=== PATIENT | female | born 1950 | race Caucasian/White ===

== ENCOUNTER 2018-07-23 06:18 | Inpatient (IN) ==
[2018-07-23] MEDS ORDERED: Albuterol 2.5 MG/3 ML NEBULIZER IH ONE (06:37)
[2018-07-23] MEDS ORDERED: Ringers Solution, Lactated 1,000 ML IVC SCH ×2 (06:45→10:40)
[2018-07-23] MEDS ORDERED: Lidocaine -MPF 1% 5 ML AMPUL ONE (06:46)
[2018-07-23] MEDS ORDERED: Bupivacaine/Clonidine Syringe 1 EACH SYRINGE ONE (06:47)
[2018-07-23] MEDS ORDERED: ROPIVACAINE HCL/PF 0.5% 30 ML VIAL ONE (06:47)
--- NOTE | 2018-07-23 06:50 | History & Physical Report ---
Date of Encounter: 07/23/18 Time of Encounter: 06:50 24 Hour HP Update - Instructions Instructions: If the History and Physical is less than 30 days old and was completed prior to A.M. admission and or procedure and has NOT been updated on calendar day of procedure please complete this update prior to performing procedure. - Update Patient reports changes in Medical Condition: No Changes in examination, assessment, or condition: No Changes in Medication: No Preop tests/diagnostics Reviewed: Yes Surgery Remains Indicated: Yes Consent for Planned Operative Procedure(s) Verified: Yes - Pre-Operative Checklist Preoperative Checklist Indicated: No Prophylactic Antibiotic Ordered: Yes Is VTE Prophylaxis Indicated?: Yes
[2018-07-23] MEDS ORDERED: *HR* Morphine Sulfate/PF 10 MG/10 ML AMPUL ONE (07:00)
--- NOTE | 2018-07-23 07:03 | Anesthesia Evaluation PreOp ---
Date of Encounter: 07/23/18 Time of Encounter: 07:00 - Past History Planned Operation: Kasi TKR Cardiac History: HTN, Hyperlipidemia Pulmonary History: Smoker, COPD VICE PRESIDENT OF OPERATIONS History: Other (chronic low back pain, bulging lumbar disc) Other Medical History: Renal (CKD III), GERD Anesthesia History: No Prior Anesthetic Complications, Past Anesthesia (lumbar fusion) Alcohol Use: none Medications and Allergies Lidocaine Patch [Lidoderm 5% patch] 1 each TP DAILY PRN #7 adh..patch 02/26/18 [Rx] predniSONE [PredniSONE] 20 mg PO BID #10 tablet 02/26/18 [Rx] Allergy/AdvReac Type Severity Reaction Status Date / Time No Known Allergies Allergy Verified 02/26/18 18:31 - Meds/Allergy Pre-op Review Medications Reviewed: Yes Allergies Reviewed: Yes Beta Blockers on Current Med List: No Anesthesia Results - Labs Laboratory Tests 02/28/18 06/27/18 06/27/18 16:32 13:43 13:43 WBC 7.6 Hgb 16.6 H Hct 51.9 H Plt Count 311 PT 10.8 INR 1.0 APTT 34.6 Sodium Potassium Chloride Carbon Dioxide BUN Creatinine Glucose 116 H 06/27/18 13:43 WBC Hgb Hct Plt Count PT INR APTT Sodium 139 Potassium 3.9 Chloride 104 Carbon Dioxide 30 H BUN 17 Creatinine 1.00 Glucose - Imaging EKG: report reviewed (SINUS RHYTHM POSSIBLE LEFT ATRIAL ENLARGEMENT Electronically Signed On 06-30-2018 13:22:19 EDT by Felix Griffiths) Anesthesia Exam O2 Sat Height 1.65 m Height 1.65 m Weight 60.328 kg Weight 60.328 kg O2 Sat by Pulse Oximetry 95 Vital Signs Temp Pulse Resp BP Pulse Ox 98.1 F 86 18 143/78 95 07/23/18 06:40 07/23/18 06:40 07/23/18 06:40 07/23/18 06:40 07/23/18 06:40 Weight: 60kg NPO (# of Hours): >8 - HEENT Pupil (Motor): Pupils equal, EOMI Mallampati: III Teeth: Poor dentition Oral Opening: Greater than 3 - VICE PRESIDENT OF OPERATIONS LOC: Oriented VICE PRESIDENT OF OPERATIONS Motor: Normal RUE, Normal LUE, Normal RLE, Normal LLE, Normal Face VICE PRESIDENT OF OPERATIONS Sensory: Normal: RUE, LUE, RLE, LLE, Face - Cardiac Rhythm: Regular - Pulmonary Breath Sounds: bilateral Clear Respiratory Effort: Symmetrical Anesthesia Assess/Plan ASA Score: 3 Level of consciousness: Cooperative Anesthetic Plan: General, Regional Nerve Block (kasi adductor and i pack) Regional Nerve Block Plan: Adductor canal (kasi), IPACK (kasi) Reason for No Neuroaxial/Regional Block: Other (spinal not performed because pt had a lumbar fusion/instrumentation and has a chronic bulging disc and low black pain) Monitoring Plan: Standard Monitors Recovery Plan: PACU
[2018-07-23] MEDS ORDERED: Lidocaine -MPF 2% 2 ML VIAL ONE (07:13)
[2018-07-23] MEDS ORDERED: *HR* FentaNYL (PF) 100 MCG/2 ML VIAL ONE ×2 (07:13→08:54)
[2018-07-23] MEDS ORDERED: Lidocaine -MPF 4% 5 ML AMPUL ONE (07:13)
[2018-07-23] MEDS ORDERED: *HR* Succinylcholine 200 MG/10 ML VIAL IVP ONE (07:13)
[2018-07-23] MEDS ORDERED: Ondansetron 4 MG/2 ML VIAL ONE (07:13)
[2018-07-23] MEDS ORDERED: *HR* Propofol 200 MG/20 ML VIAL IVP ONE (07:13)
[2018-07-23] MEDS ORDERED: *HR* Midazolam HCl 2 MG/2 ML VIAL ONE (07:13)
[2018-07-23] MEDS ORDERED: Dexamethasone 4 MG/ML VIAL ONE (07:13)
[2018-07-23] MEDS ORDERED: Propofol 500 MG/50 ML INFUS..BTL ONE (07:16)
[2018-07-23] MEDS ORDERED: Acetaminophen IV 1,000 MG/100 ML INFUS..BTL ONE (07:18)
[2018-07-23] MEDS ORDERED: Pregabalin 50 MG CAPSULE ONE (07:18)
[2018-07-23] MEDS ORDERED: Ethanol\\Acetic Acid\\Na Ace\\Ben 1,000 ML IRRIG.SOLN IR ONE ×2 (07:37)
[2018-07-23] MEDS ORDERED: *HR* Phenylephrine 10 MG/ML VIAL ONE (08:00)
[2018-07-23] MEDS ORDERED: Tranexamic Acid 1,000 MG/10 ML VIAL ONE ×2 (08:05→08:07)
[2018-07-23] MEDS ORDERED: *HR* Promethazine 25 MG/ML VIAL IVP PRN (08:38)
[2018-07-23] MEDS ORDERED: *HR* OxyCODONE/APAP 5/325 TABLET PO PRN (08:38)
[2018-07-23] MEDS ORDERED: *HR* Labetalol 20 MG/4 ML SYRINGE IVP PRN (08:38)
--- NOTE | 2018-07-23 08:38 | Anesthesia Procedures ---
Addendum entered and electronically signed by Tania Conklin CRNA 07/23/18 11:05: Original Note: Date of Encounter: 07/23/18 Time of Encounter: 07:30 Procedures: Anesthesia - Nerve Block Procedure Date: 07/23/18 Time: 07:30 Allergies/Adv Reactions: NKDA Pre-op Diagnosis: BILATERAL KNEE ARTHRTIS Surgical Procedure: BILATERAL TKA Checklist: Correct Patient Identifier, Correct procedure, History checked Blood Thinner: No Monitor Applied: EKG, BP, Pulse Oximetry Supplemental Oxygen via Nasal Cannula (L/min): 2 Sedation: Versed (mg): 2 Sedation: Fentanyl (mcg): 100 Indication: Post Op Analgesia Pre-op Neuro Deficits: No Block Type: Other (ADDUCTOR BILATERAL + IPACK BILATERAL ) Catheter placed: No Sterile Technique: Yes Ultrasound used: Yes Anatomy identified: Yes Visual spread of Local: Yes Neuro Stimulation: No Blood on Needle Aspiration: No Smooth Injection of Local: Yes Pain with Injection of Local: No Prep: Chlorhexadine Needle: 22 x 50 mm Stimuplex Local: 0.25% Bupivicaine w/Clonidine 20 mcg/cc, Ropivacaine (0.25% WITH 8MG DECADRON ) Volume (cc): 60 Number of Attempts: 1 Complications: None/effective block Vitals: Vital Signs - Last 8 Hours Temp Pulse Resp BP Pulse Ox 07/23/18 07:45 90 16 126/73 98 07/23/18 07:30 86 14 121/64 91 07/23/18 06:40 98.1 F 86 18 143/78 95 Intake and Output 07/22/18 07/23/18 07/23/18 23:59 07:59 15:59 Intake Total 250 / 250 Balance 250 / 250 Intake: IV Fluids 250 / 250 Vancocin 1,000 MG In 0.9 % 250 / 250 Sodium Chloride 250 ML @ 167 mls/hr IVPB ONCE ONE Rx#: [id number] Other: Weight 60.328 kg Patient Weight 07/23/18 23:59 Weight 60.328 kg Comments: SRNA PERFORMED BLOCKS
--- NOTE | 2018-07-23 09:15 | Orthopedic Operative Note ---
Date of procedure: 07/23/18 Pre-op diagnosis: Bilateral knee arthritis Post-op diagnosis: same Procedure: Procedure: Bilateral robotic-assisted Total knee replacement Estimated blood loss: 400 cc Hardware: Metal and polyethylene replacement. Altagracia Femur: 3 Tibia: 3 TS insert:11 left, 9 right Patella: 36 Exam Under anesthesia: Right knee 3 degree flexion contracture 3 degree varus left knee 0 degree flexion-extension 3 degree varus as calculated by the robot full flexion and no instability Procedural Notes: Grade 4 arthritic changes all 3 compartments both knees Operative procedure: The patient was brought to the operating room and placed on the operating room table. After general anesthesia was administered the operative knee was examined. Findings were noted in the exam under anesthesia. Next will be dictation for both knees any differences will be highlighted. Left knee was operated on first followed by the right knee. Both operative extremity was prepped and draped in sterile surgical fashion. The patient received IV antibiotics prior to skin incision. A standard midline incision was made centered over the patella. The incision was made through the skin and subcutaneous tissue. A medial parapatellar tendon approach was performed. Care was taken to preserve tissue along the medial aspect of the patella. And to protect the patella tendon. The deep MCL was released off the medial tibia. The infra patella fat pad was excised. The patella was everted and cut was made at the level of the insertion of the quadriceps and patella tendon. The patella was sized the guide was seated and the lug holes are drilled. Knee was brought into flexion. Patient noted to have grade 4 arthritic changes all 3 compartments in both knees. Steinmann pins were placed in the tibia and the femur for the tibial and femoral arrays respectively. Checkpoints were also placed in the tibia and the femur for calculation purposes. The knee including the femur and the tibial registered. Osteophytes, ACL and PCL were excised at this point. Extension and flexion were assessed with a valgus stress components were adjusted on the computer to balance the knee. Femoral cuts were made first with robotic assistance, these included the anteri or cut posterior cuts chamfer cuts. Tibial cut was then performed with robotic assistance as well. Bone fragments were removed, as well as the medial and lateral meniscus. The size 3 femoral guide was seated box cut was made lug holes are drilled. The size 3 tibial tray was seated and prepared with the fin cutter. Trial reduction with the 11 on the left 9 on the right TS Cher revealed extens ion of 0 degree and 1 degree varus for both knees full flexion. No varus valgus instability. Trial reduction revealed excellent patella tracking. All trial components were removed all bony surfaces were irrigated. The Tibia was seated followed by the femur, The selected Cher size left 11, right 9 was seated and secured patella. Patient had similar findings for motion and stability. The knee was closed by the PA. The knee was then irrigated out with 2 L of pulse irrigation. The extensor mechanism was closed with #2 FiberWire suture and #2 PDS suture. The subcutaneous tissue was then irrigated and closed deep with #1 PDS suture superficially with 0 PDS suture and skin was closed with zip tie The patient was then placed in a sterile dressing and a postoperative brace extubated and transferred to recovery room in stable condition. Anesthesia: GETA Surgeon: Anup Sanchez Was there an assistant dean of students present: Yes Virtualization Engineer: Maame Kovacs Estimated blood loss (cc): 400 Condition: stable Disposition: PACU
[2018-07-23] MEDS: *HR* HYDROmorphone (PF) 1 MG/ML SYRINGE IVP PRN ×2 (10:06→10:11)
[2018-07-23] MEDS ORDERED: Ondansetron 4 MG/2 ML VIAL IVP PRN (10:40)
[2018-07-23] MEDS ORDERED: Temazepam 15 MG CAPSULE PO PRN (10:40)
[2018-07-23] MEDS ORDERED: MOM Conc 10 ML UD.LIQ PO PRN (10:40)
[2018-07-23] MEDS ORDERED: Naloxone 0.4 MG/ML INJ IVP PRN (10:40)
[2018-07-23] MEDS ORDERED: Sennosides 8.6 MG TABLET PO PRN (10:40)
[2018-07-23] MEDS ORDERED: Melatonin 3 MG TABLET PO PRN (10:40)
--- NOTE | 2018-07-23 10:42 | Anesthesia Evaluation Post Op ---
Date of Encounter: 07/23/18 Time of Encounter: 10:41 - Vital Signs Vital Signs: Vital Signs/O2 Sat, Most Current Temp Pulse Resp BP Pulse Ox 98.5 F 81 13 119/68 94 07/23/18 10:26 07/23/18 10:26 07/23/18 10:26 07/23/18 10:26 07/23/18 10:26 - Lungs Lungs: Clear Ascult./Percussion - Airway Airway: Non-obstructed - Cardiovascular Regular Rate - Mental Status Mental Status: Alert & Oriented, Answers Appropriately - Pain Pain Scale: 5 Pain Scale used: Numeric (1 - 10) - Nausea Vomiting Nausea Vomiting: Not Present - Hydration Hydration: Ice chips - Discharge PostOp Status: Transfer Patient to floor
[2018-07-23] MEDS: *HR* OxyCODONE Immed Rel 5 MG TABLET PO PRN ×2 (11:08→21:24)
[2018-07-23] MEDS: Umeclidinium Brm/Vilanterol Tr [Anoro Ellipta 62.5-2 IH SCH (11:16)
--- NOTE | 2018-07-23 11:33 | Discharge Summary ---
Addendum entered and electronically signed by SIRENA Hirsch 07/29/18 16:40: Patient discharged home with scripts for walker, toilet seat rise, shower chair, and handicap placard as well. Encouraged to continue stool softener while taking opioid based pain medication and Simethicone if gas is causing her discomfort. Patient educated on warning signs regarding severe constipation. Verbalized understanding and agreement. Addendum entered and electronically signed by SIRENA Hirsch 07/29/18 16:33: POD# 6 status post Bilateral robotic-assisted Total knee replacement performed 07/23/[address] Sanchez for Bilateral knee arthritis. Patient seen at bedside with daughter present. She states she is much improved and her daughter agrees. Patient would like to transition home with home health given her marked improvement in self-care rather than ECF rehab. This is appropriate from surgical team perspective. Her hospital stay was complicated by hypoxia as noted below. Resolved on discharge. Patient reclining in bed in no acute distress alert and oriented x 3. Incision clean, dry, intact. Dressings clean, dry intact. Moderate effusion noted to left knee. No calf tenderness, erythema, or warmth noted on examination. B/L Ankle/foot ROM intact. Neurovascularly intact B/l LE. Labwork and medications reviewed. Pain control: Adequate Participating in PT. All questions and concerns addressed. Educated on use of incentive spirometer, ambulation, and hydration. Patient educated on post-operative restrictions and care. Addressed: see above. D/C plan: Home with home health today. Patient being discharged with pain medication and Aspirin for DVT prophylaxis. Keep outpatient follow up as scheduled. Addendum entered and electronically signed by Anup Sanchez MD 07/28/18 07:28: Plan for discharge today Addendum entered and electronically signed by SIRENA Pratt 07/25/18 12:53: Discharge held today secondary to hypoxia - 86% on RA. Plan to ween patient off O2 and push IS and D/C in AM once O2 is > 94% on RA or the need for supplemental O2 will be discussed for home use. Original Note: Orders not resulted at time of discharge: Pending orders 07/23/18 00:01 XR knee BI 1-2V [XR] Routine 07/23/18 07:24 US anesthesia pain block [US] Stat 07/24/18 04:00 Basic Metabolic Panel AM 0400 Hemoglobin and Hematocrit [HEME] AM 0400 07/25/18 04:00 Basic Metabolic Panel AM 0400 Hemoglobin and Hematocrit [HEME] AM 0400 Date of Encounter: 07/25/18 Time of Encounter: 11:09 - Discharge Diagnosis (1) Arthritis of knee Priority: Primary Status: Acute (2) Status post total bilateral knee replacement Priority: Primary Status: Acute (3) CKD (chronic kidney disease) stage 2, GFR 60-89 ml/min Priority: Secondary Status: Chronic (4) COPD (chronic obstructive pulmonary disease) Priority: Secondary Status: Chronic Qualifiers: COPD type: unspecified COPD Qualified Code(s): J44.9 - Chronic obstructive pulmonary disease, unspecified (5) HTN (hypertension) Priority: Secondary Status: Chronic Qualifiers: Hypertension type: essential hypertension Qualified Code(s): I10 - Essential (primary) hypertension - Hospital Course Hospital course: Ms. Spence is a 68 year old female - POD#2 - Bilateral TKR. Patient had uneventful postoperative course. Stable for discharge. Patient seen at bedside, without complaints. A&O x 3 Afebrile, vital signs stable. Vital Signs Temp Pulse Resp BP Pulse Ox 07/25/18 11:01 97.7 F 95 20 112/70 86 07/25/18 09:00 96 07/25/18 06:40 98.3 F 95 14 126/71 96 07/24/18 23:22 98.3 F 93 17 114/70 92 07/24/18 19:04 98.2 F 96 16 112/68 93 07/24/18 15:23 98.4 F 92 15 152/77 92 Intake and Output 07/24/18 07/25/18 07/25/18 23:59 07:59 15:59 Output Total 200 / 200 Balance -200 / -200 Output: Urine 200 / 200 Other: # Voids 1 1 Weight 60.32 kg 61.35 kg Patient Weight 07/25/18 23:59 Weight 61.35 kg Labs reviewed. H/H - stable, asymptomatic Short CBC 07/25/18 Range/Units 05:59 Hgb 11.8 (11.5-15.4) g/dL Hct 36.5 (35.3-44.9) % BMP 07/25/18 Range/Units 05:59 Sodium 137 (136-145) mEq/L Potassium 4.2 (3.5-5.1) mEq/L Chloride 102 (98-107) mEq/L Carbon Dioxide 29 (23-29) mEq/L BUN 18 (8-23) mg/dL Creatinine 0.83 (0.60-1.20) mg/dL Glucose 122 H (70-105) mg/dL Calcium 8.7 (8.6-10.3) mg/dL Pain control: adequate 07/24 - added Lidoderm and flexeril 5mg BID Participating in PT. All questions and concerns addressed. Educated on use of incentive spirometer. Encouraged ambulation and proper hydration. Patient educated on post-operative restrictions and post-operative care. Assessment and plan: Continue with postoperative care Discharge plan: Home with HH, discharge today - Time Spent with Patient Total time spent providing and/or coordinating discharge services: - Discharge Medications Prescriptions: OxyCODONE Immed Rel [Roxicodone 5 MG] 5 mg PO Q6HR PRN 7 Days #28 tablet PRN Reason: Severe Pain Aspirin Enteric Coated [Aspirin EC] 325 mg PO BID #20 tablet. Cyclobenzaprine [Flexeril] 5 mg PO BID PRN 10 Days #20 tablet PRN Reason: Breakthrough Pain Home Medications: Amlodipine Besylate 5 mg PO HS 07/23/18 [History] Aspirin Enteric Coated [Aspirin EC] 325 mg PO BID #20 tablet. 07/23/18 [Rx] Ca/D3/Mag#11/Zinc/Restaurant Worker/Andrade/Bor [Caltrate 600+D Plus Tablet] 1 tab PO DAILY 07/23/18 [History] Cholecalciferol (D-3) [Vitamin D] 5,000 unit PO HS 07/23/18 [History] Duloxetine HCl [Cymbalta] 60 mg PO HS 07/23/18 [History] Esomeprazole Magnesium [Nexium 24Hr] 20 mg PO DAILY 07/23/18 [History] Gabapentin [Neurontin] 300 mg PO HS 07/23/18 [History] Melatonin [Melatin] 3 mg PO HS PRN 07/23/18 [History] OxyCODONE Immed Rel [Roxicodone 5 MG] 5 mg PO Q6HR PRN 7 Days #28 tablet 07/23/18 [Rx] Rosuvastatin Calcium 5 mg PO HS 07/23/18 [History] Umeclidinium Brm/Vilanterol Tr [Anoro Ellipta 62.5-25 Mcg INH] 1 puff IH DAILY 07/23/18 [History] Cyclobenzaprine [Flexeril] 5 mg PO BID PRN 10 Days #20 tablet 07/25/18 [Rx] Allergies/Adverse Reactions: Allergy/AdvReac Type Severity Reaction Status Date / Time pravastatin AdvReac Muscle Pain Verified 07/23/18 11:06 Date of admission: 07/23 Primary care physician: Jt Ruiz MD Consults: 07/23/18 10:40 Consult to Occupational Therapy [CONS] Routine Comment: Evaluate, develop and implement POC Reason for Consult: post knee surgery Does patient have active BEDREST order?: No Is patient medically & hemodynamically stable?: Yes Consult to Orthopedic Navigator [CONS] [CONS] Routine Consult to Physical Therapy [CONS] Routine Comment: Evaluate, develop and impliment POC Reason for Consult: post knee surgery Does patient have active BEDREST order?: No Is patient medically & hemodynamically stable?: Yes Consult to Conditioner Tumbler [CONS] Routine Reason for SW Consult: post op joint replacement RT Post Op Consult [CONS] Routine Anticipated date of discharge: 07/25/18 - Patient Status Disposition: Home Health Service Condition: Good Functional capacity at discharge: uses cane/walker Overall status at discharge: patient is progressing back to baseline - Discharge Instructions Follow Up With: Jt Ruiz MD [Primary Care Provider] -
[2018-07-23] MEDS: *HR* OxyCODONE/APAP 5/325 TABLET PO PRN (17:14)
[2018-07-23] MEDS: amLODIPine 5 MG TABLET PO SCH (21:24)
[2018-07-23] MEDS: Gabapentin 300 MG CAPSULE PO SCH (21:24)
[2018-07-23] MEDS: Cholecalciferol (D-3) 1,000 UNIT TABLET PO SCH (21:24)
[2018-07-24] MEDS: *HR* OxyCODONE/APAP 5/325 TABLET PO PRN ×2 (00:16→04:50)
[2018-07-24] MEDS: *HR* OxyCODONE Immed Rel 5 MG TABLET PO PRN ×4 (01:32→19:57)
[2018-07-24] MEDS: *HR* Enoxaparin 30 MG/0.3 ML SYRINGE SQ SCH ×2 (04:50→16:43)
[2018-07-24 05:13] LABS: Hematocrit 38.7 % (35.3-44.9); Hemoglobin 12.7 g/dL (11.5-15.4)
[2018-07-24 05:31] LABS: BUN/Creatinine Ratio 21 (6-26); Blood Urea Nitrogen 20 mg/dL (8-23); Calcium 8.7 mg/dL (8.6-10.3); Carbon Dioxide 26 mEq/L (23-29); Chloride 103 mEq/L (98-107); Glucose 136 mg/dL (70-105); Osmolality,Calculated 291 (280-300); Potassium 4.2 mEq/L (3.5-5.1); Sodium 138 mEq/L (136-145); eGFR For Non-African Americans 58 (> 60)
[2018-07-24] MEDS: traMADol 50 MG TABLET PO PRN ×2 (07:47→16:43)
--- NOTE | 2018-07-24 07:53 | Orthopedics Progress Note ---
Date of Encounter: 07/24/18 Time of Encounter: 07:53 Subjective Interval history: Patient was seen this morning doing well without complaints. Afebrile vital signs stable. Operative extremity: Neurovascularly intact Dressing clean dry and intact Calves nontender Assessment and plan: Continue with postoperative care Hematocrit 38 Objective Vital signs: Vital Signs Temp Pulse Resp BP Pulse Ox 07/24/18 06:41 148/79 07/24/18 06:35 98.1 F 83 16 148/79 96 07/24/18 04:34 98.3 F 77 16 128/82 95 07/23/18 22:57 97.9 F 81 17 132/80 96 07/23/18 18:49 97.8 F 78 16 133/81 95 07/23/18 16:57 97.5 F L 88 14 126/79 97 07/23/18 16:02 97.3 F L 75 12 132/74 96 07/23/18 13:52 97.5 F L 88 14 96/62 92 07/23/18 12:49 97.6 F 78 16 110/62 95 07/23/18 11:45 97.5 F L 87 16 126/59 93 07/23/18 11:14 97.9 F 82 16 126/73 93 07/23/18 10:43 97.5 F L 83 16 121/73 93 07/23/18 10:26 98.5 F 81 13 119/68 94 07/23/18 10:16 98.5 F 80 14 112/67 94 07/23/18 10:06 82 13 110/65 95 07/23/18 09:56 75 16 130/73 97 07/23/18 09:46 99.4 F 73 15 114/71 100 Intake and Output 07/23/18 07/23/18 07/24/18 15:59 23:59 07:59 Intake Total 250 / 250 460 / 460 250 / 250 Output Total 400 / 400 120 / 120 Balance -150 / -150 340 / 340 250 / 250 Intake: IV Fluids 250 / 250 100 / 100 Vancocin 1,000 MG In 0.9 % 250 / 250 Sodium Chloride 250 ML @ 167 mls/hr IVPB ONCE ONE Rx#: [id number] Ancef 2,000 MG In 0.9 % Sodium 100 / 100 Chloride 100 ML @ 200 mls/hr IVPB Q8HR WADE Rx#:[id number] Oral 360 / 360 250 / 250 Output: Urine 120 / 120 Estimated Blood Loss 400 / 400 Other: Percent of Meal Consumed 90% # Voids 1 1 Weight 60.33 kg Patient Weight 07/24/18 23:59 Weight 60.33 kg - Labs CBC & BMP: 07/24/18 04:54 07/24/18 04:54 Labs: Abnormal lab results Est GFR (Non-Af Amer) 58 (> 60) L 07/24/18 04:54 Glucose 136 mg/dL (70-105) H 07/24/18 04:54 Consult Discharge Plan - Plan Referrals: Jt Ruiz MD [Primary Care Provider] - Prescriptions: Aspirin Enteric Coated [Aspirin EC] 325 mg PO BID #20 tablet. OxyCODONPeterson Immed Rel [Roxicodone 5 MG] 5 mg PO Q6HR PRN 7 Days #28 tablet PRN Reason: Severe Pain
[2018-07-24] MEDS: Umeclidinium Brm/Vilanterol Tr [Anoro Ellipta 62.5-2 IH SCH (11:01)
--- NOTE | 2018-07-24 11:44 | Physician Discharge Referral ---
<Maame Kovacs Yany - Last Filed: 07/24/18 11:42> Home Health/Hosp Referral Info Transfer to: Home Health Provider in Charge Post Discharge: PCP - Diagnosis (1) Status post total bilateral knee replacement Priority: Primary Status: Acute (2) Arthritis of knee Priority: Primary Status: Acute (3) HTN (hypertension) Priority: Secondary Status: Chronic (4) COPD (chronic obstructive pulmonary disease) Priority: Secondary Status: Chronic (5) CKD (chronic kidney disease) stage 2, GFR 60-89 ml/min Priority: Secondary Status: Chronic - Respiratory Orders None Smoking Cessation: Smoking cessation has been advised. For more information, call the [place] Tobacco Quit Line at 5-827-VHSO-NOW. - Diet/Nutrition Diet/Nutrition Orders: Regular - Activity Activity Orders: Up ad lobito, Ambulate, Walker - Services Needed Following services are medically necessary services: Nursing, Home Health Aide, Physical Therapy, Occupational Therapy Home Care Orders: Opsite dressing, leave intact until first post-operative visit. If dressing becomes >50% saturated, contact office, remove dressing and place appropriate dressing in its place. Do not allow for dressing to get wet. Zipline in place, plan to remove at post-operative day #14-16. Total Joint Precautions x 6 weeks Apply cold therapy wrap 3-6x/day for 20 minutes at a time. Encourage ambulation throughout the day Use Incentive spirometer 10x/hour. Elevate affected extremity above heart as tolerated. Brace: Wear knee immobilizer at night until first post-operative appt. - Transfer Medications Prescriptions: OxyCODONE Immed Rel [Roxicodone 5 MG] 5 mg PO Q6HR PRN 7 Days #28 tablet PRN Reason: Severe Pain Aspirin Enteric Coated [Aspirin EC] 325 mg PO BID #20 tablet. Home Medications: Amlodipine Besylate 5 mg PO HS 07/23/18 [History] Aspirin Enteric Coated [Aspirin EC] 325 mg PO BID #20 tablet. 07/23/18 [Rx] Ca/D3/Mag#11/Zinc/Costume Specialist/Andrade/Bor [Caltrate 600+D Plus Tablet] 1 tab PO DAILY 07/23/18 [History] Cholecalciferol (D-3) [Vitamin D] 5,000 unit PO HS 07/23/18 [History] Duloxetine HCl [Cymbalta] 60 mg PO HS 07/23/18 [History] Esomeprazole Magnesium [Nexium 24Hr] 20 mg PO DAILY 07/23/18 [History] Gabapentin [Neurontin] 300 mg PO HS 07/23/18 [History] Melatonin [Melatin] 3 mg PO HS PRN 07/23/18 [History] OxyCODONE Immed Rel [Roxicodone 5 MG] 5 mg PO Q6HR PRN 7 Days #28 tablet 07/23/18 [Rx] Rosuvastatin Calcium 5 mg PO HS 07/23/18 [History] Umeclidinium Brm/Vilanterol Tr [Anoro Ellipta 62.5-25 Mcg INH] 1 puff IH DAILY 07/23/18 [History] Allergies/Adverse Reactions: Allergy/AdvReac Type Severity Reaction Status Date / Time pravastatin AdvReac Muscle Pain Verified 07/23/18 11:06 Certification: Further, I certify that my clinical findings support that this patient is homebound (i.e. absences from home require considerable and taxing effort and are for medical reasons or druze services or infrequently or short duration when for other reasons) because: Homebound Reason: Absences from home are contraindicated except to recieve medical care, Post-surgery restriction and or conditions limit ability to leave home Attestation: My signature below is to certify that this patient is under my care and that I, or nurse practitioner, or a physician's special education assistant working with me, has a [id number] encounter with this patient. <Anup Sanchez - Last Filed: 07/25/18 06:48> - Respiratory Orders Smoking Cessation: Smoking cessation has been advised. For more information, call the [place] Tobacco Quit Line at 5-616-OZQG-NOW. Certification: Further, I certify that my clinical findings support that this patient is homebound (i.e. absences from home require considerable and taxing effort and are for medical reasons or druze services or infrequently or short duration when for other reasons) because: Attestation: My signature below is to certify that this patient is under my care and that I, or nurse practitioner, or a physician's special education assistant working with me, has a [id number] encounter with this patient.
--- NOTE | 2018-07-24 12:00 | Event Note ---
Date of Encounter: 07/24/18 Time of Encounter: 11:59 PCR - POD#1 0- Bilateral TKR. Patient seen at bedside, without complaints. A&O x 3 Afebrile, vital signs stable. Labs reviewed. H/H - stable, asymptomatic Pain control: adequate 07/24 - added Lidoderm and flexeril 5mg BID Participating in PT. All questions and concerns addressed. Educated on use of incentive spirometer. Encouraged ambulation and proper hydration. Patient educated on post-operative restrictions and post-operative care. Assessment and plan: Continue with postoperative care Discharge plan: Home with , discharge Vital Signs Temp Pulse Resp BP Pulse Ox 07/24/18 09:58 98.3 F 87 16 144/83 96 07/24/18 06:41 148/79 07/24/18 06:35 98.1 F 83 16 148/79 96 07/24/18 04:34 98.3 F 77 16 128/82 95 07/23/18 22:57 97.9 F 81 17 132/80 96 07/23/18 18:49 97.8 F 78 16 133/81 95 07/23/18 16:57 97.5 F L 88 14 126/79 97 07/23/18 16:02 97.3 F L 75 12 132/74 96 07/23/18 13:52 97.5 F L 88 14 96/62 92 07/23/18 12:49 97.6 F 78 16 110/62 95 Intake and Output 07/23/18 07/24/18 07/24/18 23:59 07:59 15:59 Intake Total 460 / 460 250 / 250 Output Total 120 / 120 Balance 340 / 340 250 / 250 Intake: IV Fluids 100 / 100 Ancef 2,000 MG In 0.9 % Sodium 100 / 100 Chloride 100 ML @ 200 mls/hr IVPB Q8HR [facility] Rx#:[id number] Oral 360 / 360 250 / 250 Output: Urine 120 / 120 Other: Percent of Meal Consumed 90% # Voids 1 1 Weight 60.33 kg Patient Weight 07/24/18 23:59 Weight 60.33 kg Short CBC 07/24/18 Range/Units 04:54 Hgb 12.7 (11.5-15.4) g/dL Hct 38.7 (35.3-44.9) % BMP 07/24/18 Range/Units 04:54 Sodium 138 (136-145) mEq/L Potassium 4.2 (3.5-5.1) mEq/L Chloride 103 (98-107) mEq/L Carbon Dioxide 26 (23-29) mEq/L BUN 20 (8-23) mg/dL Creatinine 0.96 (0.60-1.20) mg/dL Glucose 136 H (70-105) mg/dL Calcium 8.7 (8.6-10.3) mg/dL
[2018-07-24] MEDS: Gabapentin 300 MG CAPSULE PO SCH (21:34)
[2018-07-24] MEDS: amLODIPine 5 MG TABLET PO SCH (21:35)
[2018-07-24] MEDS: Cholecalciferol (D-3) 1,000 UNIT TABLET PO SCH (21:35)
[2018-07-25] MEDS: *HR* OxyCODONE Immed Rel 5 MG TABLET PO PRN ×3 (00:57→17:58)
[2018-07-25] MEDS: *HR* Enoxaparin 30 MG/0.3 ML SYRINGE SQ SCH ×2 (05:28→17:46)
[2018-07-25 06:18] LABS: Hematocrit 36.5 % (35.3-44.9); Hemoglobin 11.8 g/dL (11.5-15.4)
[2018-07-25 06:44] LABS: BUN/Creatinine Ratio 22 (6-26); Blood Urea Nitrogen 18 mg/dL (8-23); Calcium 8.7 mg/dL (8.6-10.3); Carbon Dioxide 29 mEq/L (23-29); Chloride 102 mEq/L (98-107); Glucose 122 mg/dL (70-105); Osmolality,Calculated 287 (280-300); Potassium 4.2 mEq/L (3.5-5.1); Sodium 137 mEq/L (136-145); eGFR For Non-African Americans > 60 (> 60)
--- NOTE | 2018-07-25 06:48 | Orthopedics Progress Note ---
Date of Encounter: 07/25/18 Time of Encounter: 06:47 Subjective Interval history: Patient was seen this morning doing well without complaints. Afebrile vital signs stable. Operative extremity: Neurovascularly intact Dressing clean dry and intact Calves nontender Assessment and plan: Continue with postoperative care Hematocrit 36 plan for discharge today Objective Vital signs: Vital Signs Temp Pulse Resp BP Pulse Ox 07/25/18 06:40 98.3 F 95 14 126/71 96 07/24/18 23:22 98.3 F 93 17 114/70 92 07/24/18 19:04 98.2 F 96 16 112/68 93 07/24/18 15:23 98.4 F 92 15 152/77 92 07/24/18 09:58 98.3 F 87 16 144/83 96 Intake and Output 07/24/18 07/24/18 07/25/18 15:59 23:59 07:59 Intake Total 450 / 450 Output Total 300 / 300 200 / 200 Balance 150 / 150 -200 / -200 Intake: Oral 450 / 450 Output: Urine 300 / 300 200 / 200 Other: Meal Lunch Percent of Meal Consumed 75% # Voids 1 Weight 60.32 kg 61.35 kg Patient Weight 07/25/18 23:59 Weight 61.35 kg - Labs CBC & BMP: 07/25/18 05:59 07/25/18 05:59 Labs: Abnormal lab results Glucose 122 mg/dL (70-105) H 07/25/18 05:59 Consult Discharge Plan - Plan Referrals: Jt Ruiz MD [Primary Care Provider] - Prescriptions: Aspirin Enteric Coated [Aspirin EC] 325 mg PO BID #20 tablet. OxyCODONPeterson Immed Rel [Roxicodone 5 MG] 5 mg PO Q6HR PRN 7 Days #28 tablet PRN Reason: Severe Pain
[2018-07-25] MEDS: Umeclidinium Brm/Vilanterol Tr [Anoro Ellipta 62.5-2 IH SCH (08:29)
[2018-07-25] MEDS: Cholecalciferol (D-3) 1,000 UNIT TABLET PO SCH (21:38)
[2018-07-25] MEDS: Gabapentin 300 MG CAPSULE PO SCH (21:38)
[2018-07-25] MEDS: amLODIPine 5 MG TABLET PO SCH (21:38)
[2018-07-26] MEDS: *HR* OxyCODONE Immed Rel 5 MG TABLET PO PRN ×5 (00:30→21:39)
[2018-07-26] MEDS: *HR* Enoxaparin 30 MG/0.3 ML SYRINGE SQ SCH ×2 (05:55→16:55)
[2018-07-26] MEDS: Umeclidinium Brm/Vilanterol Tr [Anoro Ellipta 62.5-2 IH SCH ×2 (08:46→11:33)
[2018-07-26 10:01] LABS: Hematocrit 33.5 % (35.3-44.9)
[2018-07-26 10:39] LABS: BUN/Creatinine Ratio 20 (6-26); Blood Urea Nitrogen 17 mg/dL (8-23); Calcium 8.5 mg/dL (8.6-10.3); Carbon Dioxide 27 mEq/L (23-29); Chloride 98 mEq/L (98-107); Glucose 100 mg/dL (70-105); Osmolality,Calculated 278 (280-300); Potassium 3.7 mEq/L (3.5-5.1); Sodium 133 mEq/L (136-145); eGFR For Non-African Americans > 60 (> 60)
--- NOTE | 2018-07-26 12:13 | Orthopedics Progress Note ---
Date of Encounter: 07/26/18 Time of Encounter: 12:11 Subjective Interval history: S: Patient is seen today and has no complaints. Improved pain to the bilateral knees O: Afebrile and vital signs are stable Operative extremity dressing is clean, dry, and intact. Neurovascularly intact distally A: Bilateral total knee arthroplasty P: Resume postoperative care Anticipate discharge to [facility] on Saturday Objective Vital signs: Vital Signs Temp Pulse Resp BP Pulse Ox 07/26/18 10:36 97.6 F 92 16 99/57 93 07/26/18 09:00 94 07/26/18 07:13 97.7 F 85 20 121/85 92 07/26/18 03:31 98.4 F 102 16 99/63 90 07/25/18 23:27 99.8 F H 97 16 136/76 92 07/25/18 20:22 98.2 F 97 14 148/77 93 07/25/18 16:25 98.7 F 99 20 126/72 93 07/25/18 12:26 97 Intake and Output 07/25/18 07/26/18 07/26/18 23:59 07:59 15:59 Intake Total 240 / 240 240 / 240 Output Total 400 / 400 200 / 200 Balance 240 / 240 -400 / -400 40 / 40 Intake: Oral 240 / 240 240 / 240 Output: Urine 400 / 400 200 / 200 Other: Meal Dinner Breakfast Percent of Meal Consumed 40% 60% Weight 65.7 kg Patient Weight 07/26/18 23:59 Weight 65.7 kg - Labs CBC & BMP: 07/26/18 09:41 07/26/18 09:41 Labs: Abnormal lab results Hgb 11.0 g/dL (11.5-15.4) L 07/26/18 09:41 Hct 33.5 % (35.3-44.9) L 07/26/18 09:41 Sodium 133 mEq/L (136-145) L 07/26/18 09:41 Calculated Osmolality 278 (280-300) L 07/26/18 09:41 Calcium 8.5 mg/dL (8.6-10.3) L 07/26/18 09:41 Consult Discharge Plan - Plan Referrals: Jt Ruiz MD [Primary Care Provider] - Prescriptions: Aspirin Enteric Coated [Aspirin EC] 325 mg PO BID #20 tablet. Cyclobenzaprine [Flexeril] 5 mg PO BID PRN 10 Days #20 tablet PRN Reason: Breakthrough Pain OxyCODONE Immed Rel [Roxicodone 5 MG] 5 mg PO Q6HR PRN 7 Days #28 tablet PRN Reason: Severe Pain
[2018-07-26] MEDS: amLODIPine 5 MG TABLET PO SCH (21:39)
[2018-07-26] MEDS: Cholecalciferol (D-3) 1,000 UNIT TABLET PO SCH (21:39)
[2018-07-26] MEDS: Gabapentin 300 MG CAPSULE PO SCH (21:39)
[2018-07-27] MEDS: *HR* OxyCODONE/APAP 5/325 TABLET PO PRN ×3 (03:02→19:47)
[2018-07-27] MEDS: *HR* Enoxaparin 30 MG/0.3 ML SYRINGE SQ SCH ×2 (06:27→17:02)
[2018-07-27] MEDS: Umeclidinium Brm/Vilanterol Tr [Anoro Ellipta 62.5-2 IH SCH (07:58)
[2018-07-27] MEDS: *HR* OxyCODONE Immed Rel 5 MG TABLET PO PRN (07:58)
--- NOTE | 2018-07-27 11:27 | Orthopedics Progress Note ---
Date of Encounter: 07/27/18 Time of Encounter: 11:27 Subjective Interval history: S: Patient is seen today and has no complaints. Improved pain to the bilateral knees O: Afebrile and vital signs are stable Operative extremity dressing is clean, dry, and intact. Neurovascularly intact distally A: Bilateral total knee arthroplasty P: Resume postoperative care Anticipate discharge to [facility] on Saturday Objective Vital signs: Vital Signs Temp Pulse Resp BP Pulse Ox 07/27/18 03:07 98.4 F 88 20 114/70 94 07/27/18 00:22 98.5 F 92 20 115/68 93 07/26/18 20:00 99.7 F H 07/26/18 19:31 100.7 F H 93 18 112/74 93 07/26/18 15:43 97.8 F 96 17 116/61 90 Intake and Output 07/26/18 07/27/18 07/27/18 23:59 07:59 15:59 Intake Total 640 / 640 0 / 0 240 / 240 Output Total 0 / 0 0 / 0 Balance 640 / 640 0 / 0 240 / 240 Intake: Oral 640 / 640 0 / 0 240 / 240 Output: Urine 0 / 0 0 / 0 Other: Meal Dinner Breakfast Percent of Meal Consumed 45% 50% # Voids 1 1 1 Weight 67 kg Patient Weight 07/27/18 23:59 Weight 67 kg - Labs CBC & BMP: 07/26/18 09:41 07/26/18 09:41 Labs: Abnormal lab results Hgb 11.0 g/dL (11.5-15.4) L 07/26/18 09:41 Hct 33.5 % (35.3-44.9) L 07/26/18 09:41 Sodium 133 mEq/L (136-145) L 07/26/18 09:41 POC Glucose 104 mg/dL (70-99) H 07/25/18 12:37 Calculated Osmolality 278 (280-300) L 07/26/18 09:41 Calcium 8.5 mg/dL (8.6-10.3) L 07/26/18 09:41 Consult Discharge Plan - Plan Referrals: Jt Ruiz MD [Primary Care Provider] - Prescriptions: Aspirin Enteric Coated [Aspirin EC] 325 mg PO BID #20 tablet. Cyclobenzaprine [Flexeril] 5 mg PO BID PRN 10 Days #20 tablet PRN Reason: Breakthrough Pain OxyCODONE Immed Rel [Roxicodone 5 MG] 5 mg PO Q6HR PRN 7 Days #28 tablet PRN Reason: Severe Pain
[2018-07-27] MEDS: Cholecalciferol (D-3) 1,000 UNIT TABLET PO SCH (19:47)
[2018-07-27] MEDS: amLODIPine 5 MG TABLET PO SCH (19:47)
[2018-07-27] MEDS: Gabapentin 300 MG CAPSULE PO SCH (19:47)
[2018-07-27] MEDS: traMADol 50 MG TABLET PO PRN (23:23)
[2018-07-28] MEDS: *HR* OxyCODONE Immed Rel 5 MG TABLET PO PRN ×4 (01:45→22:54)
[2018-07-28] MEDS: *HR* Enoxaparin 30 MG/0.3 ML SYRINGE SQ SCH ×2 (06:48→16:48)
--- NOTE | 2018-07-28 07:28 | Orthopedics Progress Note ---
Date of Encounter: 07/28/18 Time of Encounter: 07:27 Subjective Interval history: Patient was seen this morning doing well without complaints. Afebrile vital signs stable. Operative extremity: Neurovascularly intact Dressing clean dry and intact Calves nontender Assessment and plan: Continue with postoperative care Discharge held secondary to placement. Plan for discharge today Objective Vital signs: Vital Signs Temp Pulse Resp BP Pulse Ox 07/28/18 06:53 98.0 F 78 16 118/72 93 07/28/18 03:32 98.0 F 87 14 106/64 91 07/27/18 23:46 98.3 F 83 14 107/64 90 07/27/18 19:34 98.9 F 64 15 91 07/27/18 18:56 98.9 F 63 14 126/73 91 07/27/18 16:41 98.0 F 85 18 101/66 95 07/27/18 11:56 98.2 F 87 16 127/84 90 Intake and Output 07/27/18 07/27/18 07/28/18 15:59 23:59 07:59 Intake Total 240 / 240 Output Total 300 / 300 Balance 240 / 240 -300 / -300 Intake: Oral 240 / 240 Output: Urine 300 / 300 Other: Meal Breakfast Dinner Percent of Meal Consumed 50% 100% # Voids 1 1 Weight 69.3 kg Patient Weight 07/28/18 23:59 Weight 69.3 kg - Labs CBC & BMP: 07/26/18 09:41 07/26/18 09:41 Labs: Abnormal lab results Hgb 11.0 g/dL (11.5-15.4) L 07/26/18 09:41 Hct 33.5 % (35.3-44.9) L 07/26/18 09:41 Sodium 133 mEq/L (136-145) L 07/26/18 09:41 POC Glucose 104 mg/dL (70-99) H 07/25/18 12:37 Calculated Osmolality 278 (280-300) L 07/26/18 09:41 Calcium 8.5 mg/dL (8.6-10.3) L 07/26/18 09:41 Consult Discharge Plan - Plan Referrals: Jt Ruiz MD [Primary Care Provider] -
[2018-07-28] MEDS: *HR* OxyCODONE/APAP 5/325 TABLET PO PRN ×2 (08:54→20:22)
[2018-07-28] MEDS: Umeclidinium Brm/Vilanterol Tr [Anoro Ellipta 62.5-2 IH SCH (09:13)
[2018-07-28] MEDS: amLODIPine 5 MG TABLET PO SCH (20:22)
[2018-07-28] MEDS: Gabapentin 300 MG CAPSULE PO SCH (20:22)
[2018-07-28] MEDS: Cholecalciferol (D-3) 1,000 UNIT TABLET PO SCH (20:22)
[2018-07-29] MEDS: *HR* OxyCODONE Immed Rel 5 MG TABLET PO PRN ×2 (03:58→15:12)
[2018-07-29] MEDS: *HR* Enoxaparin 30 MG/0.3 ML SYRINGE SQ SCH (05:55)
--- NOTE | 2018-07-29 06:48 | Orthopedics Progress Note ---
Date of Encounter: 07/29/18 Time of Encounter: 06:48 Subjective Interval history: Patient was seen this morning doing well without complaints. Afebrile vital signs stable. Operative extremity: Neurovascularly intact Dressing clean dry and intact Calves nontender Assessment and plan: Continue with postoperative care Discharge held secondary to placement. Plan for discharge today Objective Vital signs: Vital Signs Temp Pulse Resp BP Pulse Ox 07/29/18 03:56 97.9 F 99 14 118/70 90 07/28/18 23:04 98.1 F 100 15 98/56 94 07/28/18 20:20 94 07/28/18 18:45 97.9 F 84 16 122/79 93 07/28/18 16:58 97.4 F L 86 16 112/72 94 07/28/18 11:31 97.6 F 85 16 102/64 92 07/28/18 06:53 98.0 F 78 16 118/72 93 Intake and Output 07/28/18 07/28/18 07/29/18 15:59 23:59 07:59 Intake Total 200 / 200 240 / 240 400 / 400 Output Total 400 / 400 200 / 200 Balance 200 / 200 -160 / -160 200 / 200 Intake: Oral 200 / 200 240 / 240 400 / 400 Output: Urine 400 / 400 200 / 200 Other: Meal Lunch Dinner Percent of Meal Consumed 50% 80% # Voids 1 - Labs CBC & BMP: 07/26/18 09:41 07/26/18 09:41 Labs: Abnormal lab results Hgb 11.0 g/dL (11.5-15.4) L 07/26/18 09:41 Hct 33.5 % (35.3-44.9) L 07/26/18 09:41 Sodium 133 mEq/L (136-145) L 07/26/18 09:41 POC Glucose 104 mg/dL (70-99) H 07/25/18 12:37 Calculated Osmolality 278 (280-300) L 07/26/18 09:41 Calcium 8.5 mg/dL (8.6-10.3) L 07/26/18 09:41 Consult Discharge Plan - Plan Referrals: Jt Ruiz MD [Primary Care Provider] -
[2018-07-29] MEDS: *HR* OxyCODONE/APAP 5/325 TABLET PO PRN (10:39)
[2018-07-29 15:49] VITALS: BP 125/75
== END 2018-07-29 16:44 | disposition home health service (06) | DRG 462 ==
LOC: SAMDAY 06:18 → 3NENU 10:34
PROVIDERS: ADMIT Orthopaedic Surgery; ATTEND Orthopaedic Surgery

== ENCOUNTER 2019-10-19 15:54 | Observation (INO) ==
[2019-10-19] MEDS ORDERED: Nitroglycerin 0.4 MG TAB.SUBL SL PRN (16:09)
[2019-10-19] MEDS ORDERED: Aspirin 325 MG TABLET PO ONE (16:09)
[2019-10-19 16:37] LABS: Basophils # 0.1 K/mcL (0.0-0.2); Basophils % 0.4 %; Eosinophils # 0.1 K/mcL (0.0-0.6); Eosinophils % 0.7 %; Hematocrit 53.5 % (35.3-44.9); Hemoglobin 17.6 g/dL (11.5-15.4); Immature Granulocytes % 0.7 % (0-4); Lymphocytes # 3.2 K/mcL (0.6-4.6); Lymphocytes % 24.8 %; Mean Corpuscular HGB Conc 32.9 g/dL (31.6-35.5); Mean Corpuscular Hemoglobin 30.4 pg (28.0-33.3); Mean Corpuscular Volume 92.6 fL (83.0-100.0); Mean Platelet Volume 8.9 fL (9.4-12.4); Monocytes # 0.7 K/mcL (0.0-1.3); Monocytes % 5.2 %; Neutrophils # 8.7 K/mcL (1.6-8.9); Platelet Count 434 K/mcL (140-400); Red Blood Count 5.78 M/mcL (3.82-4.97); Red Cell Distribution Width 16.1 % (11.5-14.5); Segmented Neutrophils % 68.2 %; White Blood Count 12.8 K/mcL (4.3-11.1)
[2019-10-19] MEDS ORDERED: Aspirin Enteric Coated 81 MG Tablet PO STA (16:37)
[2019-10-19 16:39] LABS: INR 0.9; Prothrombin Time 9.9 Seconds (9.4-12.1)
[2019-10-19] MEDS ORDERED: Aspirin 81 MG TAB.CHEW ONE (16:40)
[2019-10-19 16:57] LABS: BUN/Creatinine Ratio 26 (6-26); Blood Urea Nitrogen 25 mg/dL (8-23); Calcium 9.2 mg/dL (8.6-10.3); Carbon Dioxide 24 mEq/L (23-29); Chloride 104 mEq/L (98-107); Glucose 120 mg/dL (70-105); Osmolality,Calculated 294 (280-300); Potassium 4.1 mEq/L (3.5-5.1); Sodium 139 mEq/L (136-145); Troponin I < 0.03 ng/mL (< 0.04); eGFR For African Americans > 60 (> 60); eGFR For Non-African Americans 56 (> 60)
[2019-10-19] MEDS ORDERED: Naloxone 0.4 MG/ML INJ IVP PRN (17:56)
[2019-10-19] MEDS ORDERED: Ondansetron 4 MG/2 ML VIAL IVP PRN (17:56)
[2019-10-19] MEDS ORDERED: Ipratropium/Albuterol Neb 3 ML IH PRN (17:58)
[2019-10-19] MEDS: *HR* Heparin 5,000 UNIT/ML VIAL SQ SCH (19:33)
[2019-10-19] MEDS: Budesonide/Formoterol 160/4.5 1 PUFF INH IH SCH (20:14)
[2019-10-19] MEDS ORDERED: Melatonin 3 MG TABLET PO SCH (21:00)
[2019-10-19] MEDS ORDERED: amLODIPine 5 MG TABLET PO SCH (21:00)
[2019-10-20 03:45] LABS: Basophils % 0.4 %; Eosinophils # 0.1 K/mcL (0.0-0.6); Eosinophils % 0.9 %; Hematocrit 50.6 % (35.3-44.9); Hemoglobin 16.1 g/dL (11.5-15.4); Immature Granulocytes % 0.8 % (0-4); Lymphocytes # 2.9 K/mcL (0.6-4.6); Lymphocytes % 26.7 %; Mean Corpuscular HGB Conc 31.8 g/dL (31.6-35.5); Mean Corpuscular Hemoglobin 30.7 pg (28.0-33.3); Mean Corpuscular Volume 96.6 fL (83.0-100.0); Mean Platelet Volume 8.9 fL (9.4-12.4); Monocytes # 0.5 K/mcL (0.0-1.3); Monocytes % 4.5 %; Neutrophils # 7.2 K/mcL (1.6-8.9); Platelet Count 359 K/mcL (140-400); Red Blood Count 5.24 M/mcL (3.82-4.97); Red Cell Distribution Width 16.1 % (11.5-14.5); Segmented Neutrophils % 66.7 %; White Blood Count 10.7 K/mcL (4.3-11.1)
[2019-10-20 04:06] LABS: BUN/Creatinine Ratio 30 (6-26); Blood Urea Nitrogen 28 mg/dL (8-23); Calcium 9.3 mg/dL (8.6-10.3); Carbon Dioxide 28 mEq/L (23-29); Chloride 104 mEq/L (98-107); Chol/HDL Ratio 2.8 (0-4.9); Cholesterol 187 mg/dL (< 200); Glucose 96 mg/dL (70-105); HDL Cholesterol 68 mg/dL (40-59); LDL Cholesterol,Calculated 82 mg/dL (0-99); Osmolality,Calculated 293 (280-300); Potassium 4.6 mEq/L (3.5-5.1); Sodium 139 mEq/L (136-145); Triglycerides 183 mg/dL (< 150); eGFR For African Americans > 60 (> 60); eGFR For Non-African Americans 59 (> 60)
[2019-10-20] MEDS: *HR* Heparin 5,000 UNIT/ML VIAL SQ SCH (05:47)
[2019-10-20] MEDS ORDERED: Regadenoson 0.4 MG/5 ML SYRINGE IVP ONE (06:23)
[2019-10-20] MEDS ORDERED: Acetaminophen 325 MG TABLET PO PRN (08:43)
[2019-10-20] MEDS ORDERED: Aspirin 81 MG TAB.CHEW PO SCH (09:00)
[2019-10-20] MEDS: Budesonide/Formoterol 160/4.5 1 PUFF INH IH SCH (11:07)
[2019-10-20 11:16] VITALS: BP 108/70
== END 2019-10-20 15:08 | disposition home or self-care (01) ==
LOC: 3BNU 15:54 → EMEROOARM 15:54 → SUATTDRO 17:48 → 3BNU 18:33
PROVIDERS: ADMIT Internal Medicine; ATTEND Internal Medicine